=== PATIENT | female | born 1935 | race Caucasian/White ===

== ENCOUNTER → 2017-09-01 | Outpatient (CLI) | payer OTHER, BC | LOC: RAD 01:22 | DX: Z12.31 Encounter for screening mammogram for malignant neoplasm of breast (principal) ==

== ENCOUNTER → 2018-04-24 | Outpatient (CLI) | payer OTHER, BC | LOC: ULTRA 08:45 | DX: R16.0 Hepatomegaly, not elsewhere classified (principal); K76.89 Other specified diseases of liver; K83.8 Other specified diseases of biliary tract ==

== ENCOUNTER → 2018-09-25 | Outpatient (CLI) | payer OTHER, BC ==
[~2018-09-25] VITALS: Ht 162.6 cm; Wt 51.3 kg
[~2018-09-25] MED LIST: ALPHAGAN P15 ML OPHTHALMIC; CALCIUM 500 +1 EAC5 PO; FISH OIL 1,001000 M2 PO; GLUCOSAMINE HC500 MG PO; MULTIVITAMINS PO; PROTONIX40 M1 PO; VITAMIN B COMP1 EACH PO; VITAMINC500 PO
--- NOTE | ~2018-09-25 | P ---
[facility] [place] [address] PROCEDURE REPORT Name: LE SALOMON Room #: REG [facility].#: [id number] Admission: 09/25/18 ������������������ Attend Phys: Doyle Hurd Discharge: ������������������ Date of : 36 Report #: [id number] THIS REPORT FOR: //name// CC: Doyle Hopkins MD DATE OF SERVICE: 09/25/2018 PROCEDURE PERFORMED: Colonoscopy. HISTORY OF PRESENT ILLNESS: The patient is an 83-year-old female with a history of colon polyps, here for routine followup. She denies any symptoms. DESCRIPTION OF PROCEDURE: The risks and benefits of the procedure were explained to the patient, those risks including but not limited to bleeding, perforation, the risk of sedation. She understood these risks and gave informed consent. Sedation was given using propofol per Anesthesia. Next, a digital rectal exam was initially performed, which was normal. Next, using a standard Olympus colonoscope, the scope was placed in the patient's anus and advanced under direct vision to the cecum. The overall prep was good. The cecum and ileocecal valve were normal in appearance. Ascending, transverse, descending and sigmoid colon were all normal. The rectal mucosa was normal. On retroflexion, no abnormalities were noted. The scope was then withdrawn and the procedure terminated. The patient tolerated the procedure well. IMPRESSION: Normal colonoscopy. RECOMMENDATIONS: No need for repeat colonoscopy due to the patient's age. Thank you for allowing me to participate in her care. ��������������������������������������������� ���������������������������������������� By: ��������������������������������������������� 1023 09 Doyle Hill MD /nt
== END | disposition home or self-care (01) ==
LOC: GI 05:41
DX: Z12.11 Encounter for screening for malignant neoplasm of colon (principal); Z86.010 Personal history of colon polyps; K21.9 Gastro-esophageal reflux disease without esophagitis; H40.9 Unspecified glaucoma; Z79.899 Other long term (current) drug therapy; Z98.890 Other specified postprocedural states; Z96.653 Presence of artificial knee joint, bilateral; Z90.710 Acquired absence of both cervix and uterus
CPT/HCPCS: 62110; 62900

== ENCOUNTER → 2018-10-05 | Outpatient (CLI) | payer OTHER, BC ==
[~2018-10-05] VITALS: Ht 162.6 cm; Wt 51.3 kg
[~2018-10-05] MED LIST changes: +GABAPENTIN 100100 MG PO; +TRAMADOL 50 MG50 MG PO
--- NOTE | ~2018-10-05 | HPC ---
[facility] [address] [place] [address] PAIN MANAGEMENT CONSULTATION Name: LE SALOMON Room #: REG [facility].#: [id number] Admission: 10/05/18 ������������������ Attend Phys: Jaime Roa MD Discharge: ������������������ Date of : 36 Report #: [id number] THIS REPORT FOR: //name// CC: TEOFILO Roa DATE OF SERVICE: 10/05/2018 Followup visit for chronic low back pain with radiculopathy, spondylosis and scoliosis. The patient returns to pain clinic today for repeat epidural injection. She has spinal stenosis, spondylosis and radiculopathy. Pain is worse across her low back, but it radiates into both legs. She discusses typical findings for a patient of her age. She gets up in the morning, oftentimes she is stiff. When she gets up and gets moving, she tends to feel better. She separates herself from others her age is that she plays golf 18 holes 5 days a week. Once she is up and swinging in golf club, pain in her back nearly goes away. It tightens up later of course in the evening, but she remains very active. PHYSICAL EXAMINATION: She is an 83-year-old, but looks much younger at least 10 years younger. Blood pressure 152/79, heart rate 56, respirations 14. She can move easily from sitting to standing position. Her gait is nonantalgic. She has tenderness across her low back. She has positive straight leg raising discomfort mostly on the left. It is mild compared to the pain across her low back, which is spondylitic pain with forward flexion, extension or rotation. PQRS: All medications were reviewed and reconciled. She does not take much in the way of pain medication other than tramadol 50 mg as needed and she takes that usually when she coughs. 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 SOCIAL HISTORY: She denies use of tobacco, drinks alcohol in a social setting. IMPRESSION: Chronic low back pain with radiculopathy and spondylosis. RECOMMENDATIONS: Epidural steroid injection under fluoroscopic guidance, L3-L4. PROCEDURE: She was taken to fluoroscopic suite, placed prone, skin prepped with ChloraPrep. Skin anesthetized over L3-L4. Using a 20-gauge Tuohy epidural needle advanced in the epidural space with loss of resistance technique. There was no blood or CSF aspirated. 1 mL of Omnipaque injected. Good spread of dye observed in the epidural space followed by 3 mL of 0.5% lidocaine mixed with [address] [address] PAIN MANAGEMENT CONSULTATION Name: LE SALOMON Room #: REG [facility] Balaji.#: [id number] Admission: 10/05/18 ������������������ Attend Phys: Jaime Roa MD Discharge: ������������������ Date of : 36 Report #: [id number] mg of triamcinolone. She tolerated the procedure well and was observed for 45 minutes and discharged. Followup visit planned as needed. ��������������������������������������������� ���������������������������������������� By: ��������������������������������������������� [id number] Jaime oRa MD /nt
[2018-10-05 13:10] VITALS: BP 152/79
--- NOTE | 2018-10-05 13:32 | NUR ---
Pain Clinic Assessment: 1. History of Osteoarthritis: FINGERS History of Rheumatoid Arthritis: NONE 2. Height: 5 ft. 4 in. 162.6 cm. Weight: 113.0 lb. oz. 51.256 kg. Patient's BMI: 19.4 3. Vital Signs: BP: 152/79 Pulse: 56 Resp: 14 Temp: 02 Sat: 100 ECG Mon: 4. Pain Intensity: 5 5. Fall Risk: Dizziness: N Needs help standing or walking: N Fallen in the last 3 months: N Fall risk comments: 6. Patient on Blood Thinner: 7. History of Hypertension: 8. Opioid Therapy greater than 6 weeks: Opiate Contract Signed: 9. Risk Assessment Tool Provided: 10. Functional Assessment Tool: 11. Recreational Drug Use: Never Drug Type: Tobacco Use: Never Smoker Tobacco Type: Amount or Packs/day: How Many Years: Alcohol Use: Yes Frequency: Special Occasions Quant: 1-2
== END | disposition home or self-care (01) ==
LOC: PAIN 06:49
DX: M47.26 Other spondylosis with radiculopathy, lumbar region (principal); G89.29 Other chronic pain; M41.86 Other forms of scoliosis, lumbar region; M48.061 Spinal stenosis, lumbar region without neurogenic claudication; Z79.899 Other long term (current) drug therapy

== ENCOUNTER → 2018-11-09 | Outpatient (CLI) | payer OTHER, BC | LOC: RAD 10-21 11:21 | DX: Z12.31 Encounter for screening mammogram for malignant neoplasm of breast (principal) ==

== ENCOUNTER → 2018-11-18 | Outpatient (CLI) | payer OTHER, BC | LOC: ULTRA 09:08 | DX: N63.20 Unspecified lump in the left breast, unspecified quadrant (principal) ==

== ENCOUNTER → 2019-02-01 | Outpatient (CLI) | payer OTHER, BC ==
[~2019-02-01] VITALS: Ht 162.6 cm; Wt 54.8 kg
[~2019-02-01] MED LIST changes: +VITAMIN A10000 UNI3 PO
[2019-02-01 09:49] VITALS: BP 142/70
--- NOTE | 2019-02-01 10:08 | NUR ---
Pain Clinic Assessment: 1. History of Osteoarthritis: FINGERS History of Rheumatoid Arthritis: NONE 2. Height: 5 ft. 4 in. 162.6 cm. Weight: 120.8 lb. oz. 54.794 kg. Patient's BMI: 20.7 3. Vital Signs: BP: 142/70 Pulse: 55 Resp: 14 Temp: 02 Sat: 100 ECG Mon: 4. Pain Intensity: 6-7 5. Fall Risk: Dizziness: N Needs help standing or walking: N Fallen in the last 3 months: N Fall risk comments: 6. Patient on Blood Thinner: None 7. History of Hypertension: N 8. Opioid Therapy greater than 6 weeks: N Opiate Contract Signed: 9. Risk Assessment Tool Provided: 10. Functional Assessment Tool: 11. Recreational Drug Use: Never Drug Type: Tobacco Use: Never Smoker Tobacco Type: Amount or Packs/day: How Many Years: Alcohol Use: Yes Frequency: Weekly Quant: 3X A WEEK BEER
--- NOTE | 2019-02-04 08:38 | HPC ---
[facility] [place] [address] PAIN MANAGEMENT CONSULTATION Name: LE SALOMON Room #: REG [facility].#: [id number] Admission: 02/01/19 ������������������ Attend Phys: Jaime Roa MD Discharge: ������������������ Date of : 36 Report #: [id number] THIS REPORT FOR: //name// CC: Hira Roa DATE OF SERVICE: 02/01/2019 Followup visit for recurrent low back pain with radiculopathy. The patient was here today to have an epidural injection. She has done well with injections receiving them only intermittently. Her last injection was in September, over 4 months ago. She has a notable rotational scoliosis of the thoracolumbar spine. She underwent a successful MILD procedure with Dr. No for spinal stenosis and has continued to play golf throughout the summer. The pain then began to return and is radicular in its nature. It is across the low back, but she also has aching and radiation into the left leg. Epidural injections provided in excess of 95% pain relief for 6 weeks and then gradually the pain returns. I think it is an excellent therapy for at this point. She is certainly not a surgical candidate. She remains very active. I have nothing to add to her overall physical activity. At 83, she looks 15 years younger and plays golf and does things that many at her age would not do. PQRS REVIEW: 1. History of osteoarthritis of the hands and fingers. 2. BMI 20.7. She is very fit. 3. Blood pressure 142/70, heart rate 55. 4. Pain intensity 6-7/10. 5. She is not a fall risk. 6. She is on no blood thinners. 7. No history of hypertension. 8. No use of opioids. 9. Opioid risk score is 0. 10. Functional assessment score is 20 or less. 11. She denies use of tobacco, drinks alcohol 3-4 times a week, usually just a beer at a time. Very conservative in her alcohol use. IMPRESSION: 1. Chronic low back pain with radiculopathy on the left. History of MILD for spinal stenosis. 2. History of excellent response to epidural injections with sustained response. PROCEDURE: Lumbar epidural injection, L3-L4, under fluoroscopic guidance. [address] [address] PAIN MANAGEMENT CONSULTATION Name: LE SALOMON Room #: REG [facility] Cardenas#: [id number] Admission: 02/01/19 ������������������ Attend Phys: Jaime Roa MD Discharge: ������������������ Date of : 36 Report #: [id number] PROCEDURE: She was taken to fluoroscopic suite, placed prone, skin prepped with ChloraPrep. Skin anesthetized over the L3-L4 interspace. A 20-gauge Tuohy epidural needle advanced in the epidural space with [id number] technique. A 0.25 mL of Omnipaque injected with an excellent epidurogram noted similar to her previous injections. It was then followed by 3 mL of 0.5% lidocaine mixed with 10 mg of Decadron. There were no complications. She tolerated the procedure well and was taken to recovery room for observation. We have recently transitioned from triamcinolone to Decadron. I have asked her to assess this injection in relationship to her previous injections with triamcinolone and we will discuss response at followup visit. ��������������������������������������������� <ELECTRONICALLY SIGNED> ���������������������������������������� By: Jaime Roa MD ��������������������������������������������� 02/04/19 0838 [id number] [id number] Jaime Roa MD /nt
== END | disposition home or self-care (01) ==
LOC: PAIN 06:54
DX: M54.16 Radiculopathy, lumbar region (principal); G89.29 Other chronic pain; M48.061 Spinal stenosis, lumbar region without neurogenic claudication; Z98.890 Other specified postprocedural states; Z79.899 Other long term (current) drug therapy

== ENCOUNTER → 2019-05-10 | Outpatient (CLI) | payer OTHER, BC ==
[~2019-05-10] VITALS: Ht 162.6 cm; Wt 55.5 kg
[2019-05-10 10:55] VITALS: BP 156/70
--- NOTE | 2019-05-10 11:09 | NUR ---
Pain Clinic Assessment: 1. History of Osteoarthritis: FINGERS History of Rheumatoid Arthritis: NONE 2. Height: 5 ft. 4 in. 162.6 cm. Weight: 122.4 lb. oz. 55.520 kg. Patient's BMI: 21.0 3. Vital Signs: BP: 156/70 Pulse: 54 Resp: 14 Temp: 02 Sat: 100 ECG Mon: 4. Pain Intensity: 4-5 5. Fall Risk: Dizziness: N Needs help standing or walking: N Fallen in the last 3 months: N Fall risk comments: 6. Patient on Blood Thinner: None 7. History of Hypertension: N 8. Opioid Therapy greater than 6 weeks: N Opiate Contract Signed: 9. Risk Assessment Tool Provided: 10. Functional Assessment Tool: 11. Recreational Drug Use: Never Drug Type: Tobacco Use: Never Smoker Tobacco Type: Amount or Packs/day: How Many Years: Alcohol Use: Yes Frequency: Quant:
--- NOTE | 2019-05-17 12:21 | HPC ---
[facility] [place] [address] PAIN MANAGEMENT CONSULTATION Name: LE SALOMON Room #: REG [facility].#: [id number] Admission: 05/10/19 Attend Phys: Jaime Roa MD Discharge: Date of : 36 Report #: [id number] THIS REPORT FOR: //name// CC: Hira Roa DATE OF SERVICE: 05/10/2019 Followup visit for severe low back pain with radiculopathy. The patient returns to pain clinic today, would like an epidural injection before she leaves for her winter trip to [place]. She has had good response to these injections having pain relief for many months at a time. We noted that her last injection was not helpful with dexamethasone. We have switched from dexamethasone back to triamcinolone and I am anticipating that she will have a better response today. Pain today is reported as 4-5/10, it is on the right side of her low back and radiating into the right leg. She also has pain bilaterally in the shoulders, worse on the right. She has been told that she needs a shoulder replacement, but she is foregoing that aggressive treatment for now, she can continue to play golf! PQRS REVIEW: Positive for osteoarthritis of the spine, shoulders and she complains of some arthritis in her hands. BMI is 21.0, blood pressure 156/70, heart rate 54, O2 sat 100, pain intensity 5/10. She is not a fall risk. She is on no blood thinners or antihypertensives. Does not take opioids. She denies use of tobacco, drinks alcohol in small amounts in a social setting. PHYSICAL EXAMINATION: Reveals a pleasant 83-year-old who looks 10 years younger than her stated age. She moves independently from sitting to standing position. Her gait is mildly antalgic. Examination of the low back reveals rotational curvature and scoliosis. There is tenderness across the lumbosacral segment. She denies numbness or tingling in her lower extremities. Strength is 5/5 in all of the major muscle groups of the lower extremities. IMPRESSION: Chronic intractable low back pain. Radiculopathy bilateral. Today, she complains of more pain on the right than the left. Rotational scoliosis. PROCEDURE RECOMMENDATION: Epidural steroid injection L3-L4 under fluoroscopic guidance, right paramedian approach. She was taken to fluoroscopic suite, placed prone, skin prepped with ChloraPrep. [address] [address] PAIN MANAGEMENT CONSULTATION Name: LE SALOMON [id number] Admission: 05/10/19 Attend Phys: Jaime Roa MD Discharge: Date of : 36 Report #: [id number] Skin anesthetized over the right L3-L4 interspace. A 20-gauge Tuohy epidural needle was advanced on the first attempt in the epidural space with loss of resistance technique. There was no blood nor CSF aspirated. A 1 mL of Omnipaque was injected. Good spread of dye was observed into the epidural space followed by 3 mL of 0.5% lidocaine mixed with 80 mg triamcinolone. She tolerated the procedure well and was observed for 45 minutes and discharged. Followup visit planned as needed. No medications were ordered. <ELECTRONICALLY SIGNED> By: Jaime Roa MD 05/17/19 1221 1301 2047 Jaime Roa MD /nt
== END | disposition home or self-care (01) ==
LOC: PAIN 06:50
DX: M54.16 Radiculopathy, lumbar region (principal); G89.29 Other chronic pain; M25.511 Pain in right shoulder; M25.512 Pain in left shoulder; Z98.890 Other specified postprocedural states; M19.90 Unspecified osteoarthritis, unspecified site; Z79.899 Other long term (current) drug therapy

== ENCOUNTER → 2019-09-20 | Outpatient (CLI) | payer OTHER, BC ==
[~2019-09-20] VITALS: Ht 162.6 cm; Wt 55.8 kg
[~2019-09-20] MED LIST changes: +VOLTAREN GEL 1100 G2 TOP
--- NOTE | ~2019-09-20 | HPC ---
[facility] [place] [address] [place] [address] PAIN MANAGEMENT CONSULTATION Name: LE SALOMON Room #: REG [facility].#: [id number] Admission: 09/20/19 Attend Phys: Jaime Roa MD Discharge: Date of : 36 Report #: [id number] THIS REPORT FOR: cc: Hira Hopkins MD, Rene P. MD Morgan, Richard L. MD ~ CC: Hira Roa DATE OF SERVICE: 09/20/2019 Followup visit for severe low back pain with radiculopathy. I last saw the patient in April when she received a lumbar epidural injection. She got excellent pain relief. She has had relief with all of her injections using triamcinolone. The only injection that did not work well for her was when we used dexamethasone. We no longer used dexamethasone and we are finding much more sustained and lasting improvement with her epidural injections. The pain relief lasted months. Pain is now returning. She reports that the pain is consistent with her prior distribution of pain that has been responsive to epidural injections. Pain is in her low back. She describes it as chronic stiffness and achiness. She has also at times had radiating pain into the right leg consistent with radiculopathy. She was treated with MILD procedure for spinal stenosis and has been able to avoid surgery, but epidural injections still seems to make a significant difference. 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 She follows with Dr. Susanne Enriquez. She plans to see him next week and he is considering giving her a shoulder injection. Lengthy discussion regarding the use of cortisone and triamcinolone, risks and benefits, particularly if she is going to continue to get injections over a longer period of time. We discussed reducing the dose by 50% in her epidural and see if she receives the same response. We can definitely perform the injection at the same location. There is some consideration for corticosteroids during the time of quarantine and isolation for COVID-19, but we are finding this to be reasonable going forward and following guidelines. She meets all of our guidelines to go forward with an injection. She reports substantial pain relief after her injection allowing her to be much more active in golf. She does not use other medicines for pain other than [place] [address] PAIN MANAGEMENT CONSULTATION Name: LE SALOMON Room #: REG [facility] Luciano.#: [id number] Admission: 09/20/19 Attend Phys: Jaime Roa MD Discharge: Date of : 36 Report #: [id number] naproxen sodium. I have suggested maybe a trial of diclofenac gel for her shoulder and we will order 2 tubes as a trial to be used 3 times daily. Discussed avoiding other nonsteroidal anti-inflammatories while she uses it. PQRS: Positive for osteoarthritis of the spine and shoulders. BMI has remained stable at 21. She is very fit for age. Does not look ____, clearly looks 10 to even 15 years younger. Blood pressure 156/70, heart rate 54, respirations 14, O2 sat is 100, pain intensity 4-5/10. She does not need help walking or standing. In fact, plays golf 3-4 times a week. She is on no blood thinners, no treatment for hypertension. She does not take opioid medications, has not completed an opioid risk tool. She denies use of tobacco and enjoys alcohol socially with her friends. PHYSICAL EXAMINATION: Pleasant, alert and oriented 84-year-old moves independently from sitting to standing position. She has mild tenderness across her low back. She has rotational discomfort and pain with lateral tilt and forward flexion. There is tenderness across the lumbosacral segment. Straight leg raising is only mildly positive today. Strength and sensation are normal in lower extremities. IMPRESSION: 1. Intractable low back pain with lumbar radiculopathy, bilateral, right worse than left. 2. Osteoarthritis, right shoulder. We will followup with orthopedic surgeon, Susanne Enriquez on Friday. PROCEDURE: Lumbar epidural injection L3-L4 under fluoroscopic guidance. PROCEDURE NOTE: After both written and informed consent to include risk of spinal cord damage, increased pain, weakness and dural puncture, the patient was taken to the fluoroscopy suite, placed in the prone position. After sterile prep and drape, a skin wheal with lidocaine was raised. A 22-gauge epidural Tuohy needle was inserted in the midline at L3-L4 with good loss to resistance. Negative aspiration for cerebrospinal fluid or blood was noted. Then 1 mL of Omnipaque under biplanar fluoroscopy showed good spread within the epidural space. This was followed with 40 mg of triamcinolone plus 3 mL of 0.5% bupivacaine ____ was then injected to flush the needle; it was removed. The patient was monitored for an appropriate period of time and discharged in good and stable condition. Tolerated the procedure well and was observed for 45 minutes and discharged from the recovery room. Diclofenac gel ordered electronically. By: [id number] Jaime Roa MD /nt
[2019-09-20 09:23] VITALS: BP 139/79
--- NOTE | 2019-09-20 09:40 | NUR ---
Pain Clinic Assessment: 1. History of Osteoarthritis: FINGERS BACK History of Rheumatoid Arthritis: NONE 2. Height: 5 ft. 4 in. 162.6 cm. Weight: 123.0 lb. oz. 55.792 kg. Patient's BMI: 21.1 3. Vital Signs: BP: 139/79 Pulse: 60 Resp: 16 Temp: 02 Sat: 100 ECG Mon: 4. Pain Intensity: 5 5. Fall Risk: Dizziness: N Needs help standing or walking: N Fallen in the last 3 months: N Fall risk comments: 6. Patient on Blood Thinner: None 7. History of Hypertension: N 8. Opioid Therapy greater than 6 weeks: N Opiate Contract Signed: 9. Risk Assessment Tool Provided: LOW RISK 0/3 10. Functional Assessment Tool: 11. Recreational Drug Use: Never Drug Type: Tobacco Use: Never Smoker Tobacco Type: Amount or Packs/day: How Many Years: Alcohol Use: Yes Frequency: Daily Quant: 1
== END | disposition home or self-care (01) ==
LOC: PAIN 06:49
DX: M54.16 Radiculopathy, lumbar region (principal); G89.29 Other chronic pain; M19.011 Primary osteoarthritis, right shoulder; Z98.890 Other specified postprocedural states; Z79.899 Other long term (current) drug therapy

== ENCOUNTER → 2020-01-10 | Outpatient (CLI) | payer OTHER, BC | LOC: RAD 12:48 | PROVIDERS: ATTEND Family Medicine | DX: Z12.31 Encounter for screening mammogram for malignant neoplasm of breast (principal) ==

== ENCOUNTER → 2020-01-19 | Outpatient (CLI) | payer OTHER, BC | LOC: ULTRA 13:13 | PROVIDERS: ATTEND Family Medicine | DX: R59.0 Localized enlarged lymph nodes (principal); R92.8 Other abnormal and inconclusive findings on diagnostic imaging of breast; K76.89 Other specified diseases of liver ==

== ENCOUNTER → 2020-04-21 | Outpatient (CLI) | payer OTHER, BC ==
[~2020-04-21] VITALS: Ht 162.6 cm; Wt 56.2 kg
[2020-04-21 10:48] VITALS: BP 150/84
--- NOTE | 2020-04-21 10:49 | NUR ---
Pain Clinic Assessment: 1. History of Osteoarthritis: FINGERS BACK History of Rheumatoid Arthritis: NONE 2. Height: 5 ft. 4 in. 162.6 cm. Weight: 124.0 lb. oz. 56.246 kg. Patient's BMI: 21.3 3. Vital Signs: BP: 150/84 Pulse: 67 Resp: 14 Temp: 02 Sat: 100 ECG Mon: 4. Pain Intensity: 6 5. Fall Risk: Dizziness: N Needs help standing or walking: N Fallen in the last 3 months: N Fall risk comments: 6. Patient on Blood Thinner: None 7. History of Hypertension: N 8. Opioid Therapy greater than 6 weeks: N Opiate Contract Signed: 9. Risk Assessment Tool Provided: LOW RISK 0/3 10. Functional Assessment Tool: 11. Recreational Drug Use: Never Drug Type: Tobacco Use: Never Smoker Tobacco Type: Amount or Packs/day: How Many Years: Alcohol Use: Yes Frequency: Daily Quant: WINE WITH DINNER
== END | disposition home or self-care (01) ==
LOC: PAIN 06:51
PROVIDERS: ATTEND Anesthesiology Pain Medicine
DX: M51.16 Intervertebral disc disorders with radiculopathy, lumbar region (principal); M47.26 Other spondylosis with radiculopathy, lumbar region; M41.86 Other forms of scoliosis, lumbar region; M48.062 Spinal stenosis, lumbar region with neurogenic claudication; M19.90 Unspecified osteoarthritis, unspecified site; Z98.890 Other specified postprocedural states; Z79.899 Other long term (current) drug therapy

== ENCOUNTER → 2020-08-23 | Outpatient (CLI) | payer OTHER, BC | LOC: RAD 09:04 → BC 11:21 | PROVIDERS: ATTEND Family Medicine | DX: R92.8 Other abnormal and inconclusive findings on diagnostic imaging of breast (principal) ==

== ENCOUNTER → 2021-01-03 | Outpatient (CLI) | payer OTHER, BC | LOC: BC 09:01 | PROVIDERS: ATTEND Family Medicine | DX: R92.8 Other abnormal and inconclusive findings on diagnostic imaging of breast (principal) ==

== ENCOUNTER → 2021-06-07 | Outpatient (CLI) | payer OTHER, MEDICARE | LOC: NUC 09:43 | PROVIDERS: ATTEND Family Medicine | DX: M81.0 Age-related osteoporosis without current pathological fracture (principal); M85.88 Other specified disorders of bone density and structure, other site; M89.49 Other hypertrophic osteoarthropathy, multiple sites; Z78.0 Asymptomatic menopausal state ==